=== PATIENT | female | born 1985 | race Caucasian/White ===

== ENCOUNTER 2023-06-23 10:09 | Emergency (ER) | payer MEDICAID, SELFPAY ==
--- NOTE | ~2023-06-23 | US_ITS ---
EXAMINATION: US pelvic complete w TV DATE: 06/23/2023 14:40 INDICATION: possible ovarian vessel thrombosis TECHNIQUE: Multiple transabdominal and endovaginal sonographic images of the pelvis were obtained. COMPARISON: Outside CT abdomen and pelvis dated 06/22/2023. FINDINGS: Uterus: 8.9 x 4.8 x 5.5 cm. scar. Endometrial complex measures 11 mm. Right Ovary: 3.5 x 1.7 x 3.3 cm. Vascular flow is present. Trace free fluid in the right adnexa. Left Ovary: 3.8 x 2.9 x 3.7 cm. Vascular flow is present. 2.6 cm cyst with daughter cyst. There is small volume free fluid in the pelvis. IMPRESSION: Unremarkable pelvic sonogram findings. Reviewed, dictated and finalized at location K. ALL OPERATOR
[2023-06-23 10:13] VITALS: BP 135/74; PULSE 74; RESP 16; TEMP 37.2; O2SAT 100
--- NOTE | 2023-06-23 11:26 | PC.NURSE ---
consent for release of info signed by pt and faxed to [facility]. pt brought cd disks of ct abd/pelvis/chest
[2023-06-23] MEDS: KETOROLAC 30 MG/ML VIAL (*BKC) IV PUSH (14:39)
[2023-06-23 14:49] LABS: Basophils Percent Auto 0.1 % (0.2-1.2); Eosinophils Absolute Auto 0.1 K/mm3 (0-0.3); Eosinophils Percent Auto 0.7 % (0-4.4); Hematocrit 38.9 % (37.0-47.0); Hemoglobin 13.2 g/dL (12.0-15.0); Immature Granulocyte Absolute 0.02 K/mm3 (0.00-0.031); Immature Granulocyte Percent A 0.2 % (0-0.5); Lymphocytes Absolute Auto 1.05 K/mm3 (0.9-3.2); Lymphocytes Percent Auto 12.1 % (18.3-44.2); Mean Corpuscular HGB Conc 33.9 g/dl (32-36); Mean Corpuscular Hemoglobin 30.9 pg (26-34); Mean Corpuscular Volume 91.1 fl (80-100); Mean Platelet Volume 10.5 fl (7.4-10.4); Monocytes Absolute Auto 0.4 K/mm3 (0.1-0.6); Monocytes Percent Auto 4.7 % (2.6-8.5); Neutrophils Absolute Auto 7.1 K/mm3 (1.3-6.7); Neutrophils Percent Auto 82.2 % (45.5-73.1); Platelet Count Result 265 k/mm3 (150-375); Red Blood Count 4.27 M/mm3 (4.2-5.4); Red Cell Distribution Width 11.9 % (11.5-14.5); White Blood Count 8.7 K/mm3 (4.5-10.0)
[2023-06-23 14:58] LABS: Alanine Aminotransferase 16 U/L (6-35); Albumin Level 4.4 g/dL (3.5-5.1); Alkaline Phosphatase 59 U/L (38-126); Anion Gap 8 mmol/L (8-16); Aspartate Amino Transferase 23 U/L (14-36); Bilirubin,Total 0.7 mg/dL (0.2-1.3); Blood Urea Nitrogen 5 mg/dL (7-17); Calcium 9.5 mg/dL (8.4-10.2); Carbon Dioxide 24 mmol/L (22-30); Chloride 107 mmol/L (98-107); Estimated CRCL calculation 134 ml/min; Estimated Glomerular Filt Rate > 60; Glucose 99 mg/dL (65-110); Potassium 3.7 mmol/L (3.4-5.0); Sodium 139 mmol/L (137-145)
[2023-06-23 15:01] LABS: INR 1.1; Prothrombin Time 14.5 Seconds (11.1-14.7)
[2023-06-23 15:02] LABS: Partial Thromboplastin Time 30.8 SECONDS (22.3-36.8)
--- NOTE | 2023-06-23 15:22 | ED.GENADULT ---
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 She reports she has been having generalized malaise and fatigue for last week and half. She went to an ER for this last night and a CT scan of her abdomen and incidentally found a DVT in her her ovarian vein on the right side she has no pain. She reports that she then signed out against medical advice because she did not want wait 3 days to go to [facility] and just wants a 2nd opinion. She received 1 dose of Lovenox 1 dose of Zosyn. 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 She reports she was on oral chemotherapy pill back in March when she took for a couple months but is no longer on. It was disease would shrink the tumor because it is in a location where it cannot be surgically removed parent. Patient has no complaints this time other than fatigue she reports negative COVID urine testing. Negative flu testing. Related Data Allergies Allergy/AdvReac Type Severity Reaction Status Date / Time cephalexin [From Keflex] Allergy Hives Verified 06/23/23 13:13 Review of Systems Review of Systems: All systems reviewed & are unremarkable except as noted in HPI and below Constitutional: Constitutional: Denies chills, Reports fatigue, Denies fever(s) and Reports weakness ENT: Reports system reviewed and no additional complaints, except as documented Cardiovascular: Cardiovascular: Reports no additional cardiovascular complaints Respiratory: Respiratory: Reports no additional respiratory complaints Gastrointestinal: Gastrointestinal: Reports no additional gastrointestinal complaints Genitourinary: Genitourinary: Reports no additional female genitourinary complaints Musculoskeletal: Musculoskeletal: Reports myalgias, Denies arthralgias and Denies joint swelling PMFSH Past Medical History Medical History (Updated 06/23/23 @ 16:37 by Ld Guillermo MD) Dermoid tumor Hypertension Exam Narrative: GENERAL: Well-appearing, well-nourished, and in no acute distress. HEAD: Normocephalic, atraumatic. EYES: PERRL and EOMI. ENT: Mucous membranes moist. CHEST: Clear to auscultation. No respiratory distress. HEART: Regular rate and rhythm. Normal peripheral pulses. ABDOMEN: Soft, nontender, nondistended. EXTREMITIES: Normal range of motion. No edema. NEURO: Alert and oriented x3. PSYCH: Normal mood and affect. Course Course Emergency Course: Received patient's outside pain for. We also or discuss the imaging with the radiologist and was a partial thrombosis of either ovarian or gonadal vein. Patient has no discomfort in her abdomen right now. Discussed with Shahida VANCE at Dr. Cabrera office. I think the patient can be treated with [facility] [place] outpatient close follow-up they agree. Also discussed with patient that she contact her oncologist on a horseshoe showed see if they have any additional recommendations. Patient verbalizes understanding. Vital Signs Vital signs: Vital Signs Temperature 98.9 F 06/23/23 10:13 Pulse Rate 74 06/23/23 10:13 Respiratory Rate 16 06/23/23 10:13 Blood Pressure 135/74 06/23/23 10:13 Pulse Oximetry 100 06/23/23 10:13 Oxygen Delivery Room Air 06/23/23 10:13 Temperature 98.9 F 06/23/23 10:13 Pulse Rate 74 06/23/23 10:13 Respiratory Rate 16 06/23/23 10:13 Blood Pressure 135/74 06/23/23 10:13 Pulse Oximetry 100 06/23/23 10:13 Oxygen Delivery Room Air 06/23/23 10:13 Medical Decision Making Vital Signs Vital Signs: Vital Signs Temperature 98.9 F 06/23/23 10:13 Pulse Rate 74 06/23/23 10:13 Respiratory Rate 16 06/23/23 10:13 Blood Pressure 135/74 06/23/23 10:13 Pulse Oximetry 100 06/23/23 10:13 Oxyg
[2023-06-23 17:22] VITALS: BP 148/111; PULSE 96; RESP 18; O2SAT 100
== END 2023-06-23 17:23 | disposition home or self-care (01) ==
PROVIDERS: Emergency Provider Emergency Medicine
DX: I82.890 Acute embolism and thrombosis of other specified veins (principal)
CPT/HCPCS: 36415; 76830; 76856; 80053; 85025; 85610; 85730; 96374; 99284; J1885